=== PATIENT | male | born 1985 | race American Indian/Alaskan Native ===

== ENCOUNTER 2018-09-17 17:07 | Emergency (ER) | payer OTHER ==
[2018-09-17 18:35] VITALS: BP 119/87
--- NOTE | 2018-09-17 18:39 | Emergency Department Report ---
ED ENT HPI - General Chief complaint: Dental/Oral Stated complaint: LFT SIDE FACE SWELLING/ PAIN Time Seen by Provider: 09/17/18 18:34 Source: patient Mode of arrival: Ambulatory Limitations: No Limitations - History of Present Illness Initial comments: Pt is a 33 yo male who presents to the ED with c/o left upper dental pain that began yesterday. Pt states he has noticed mild left facial edema. Pt denies any fever, denies any N/V. Pt has not seen a dentist in 5 years. Pt denies any PMHx, denies any daily medications. Pt states he has a drug allergy to tramadol. - Related Data Previous Rx's Medication Instructions Recorded Last Taken Type Acetaminophen/Codeine [Tylenol 1 tab PO Q6H PRN #10 tab 09/17/18 Unknown Rx /Codeine # 3 tab] Clindamycin [Clindamycin CAP] 150 mg PO TID 7 Days #63 capsule 09/17/18 Unknown Rx Ibuprofen 600 mg PO Q6HR PRN #20 tablet 09/17/18 Unknown Rx Penicillin Vk [Veetids TAB] 500 mg PO TID 7 Days #21 tablet 09/17/18 Unknown Rx Allergies Allergy/AdvReac Type Severity Reaction Status Date / Time tramadol [From Ultram] Allergy Itching Verified 09/17/18 17:09 ED Dental HPI - General Chief complaint: Dental/Oral Stated complaint: LFT SIDE FACE SWELLING/ PAIN Time Seen by Provider: 09/17/18 18:34 Source: patient Mode of arrival: Ambulatory Limitations: No Limitations - Related Data Previous Rx's Medication Instructions Recorded Last Taken Type Acetaminophen/Codeine [Tylenol 1 tab PO Q6H PRN #10 tab 09/17/18 Unknown Rx /Codeine # 3 tab] Clindamycin [Clindamycin CAP] 150 mg PO TID 7 Days #63 capsule 09/17/18 Unknown Rx Ibuprofen 600 mg PO Q6HR PRN #20 tablet 09/17/18 Unknown Rx Penicillin Vk [Veetids TAB] 500 mg PO TID 7 Days #21 tablet 09/17/18 Unknown Rx Allergies Allergy/AdvReac Type Severity Reaction Status Date / Time tramadol [From Ultram] Allergy Itching Verified 09/17/18 17:09 ED Review of Systems ROS: Stated complaint: LFT SIDE FACE SWELLING/ PAIN Other details as noted in HPI Comment: All other systems reviewed and negative ED Past Medical Hx - Past Medical History Previous Medical History?: No - Surgical History Past Surgical History?: No - Medications Home Medications: Home Medications Medication Instructions Recorded Confirmed Last Taken Type Acetaminophen/Codeine [Tylenol 1 tab PO Q6H PRN #10 tab 09/17/18 Unknown Rx /Codeine # 3 tab] Clindamycin [Clindamycin CAP] 150 mg PO TID 7 Days #63 capsule 09/17/18 Unknown Rx Ibuprofen 600 mg PO Q6HR PRN #20 tablet 09/17/18 Unknown Rx Penicillin Vk [Veetids TAB] 500 mg PO TID 7 Days #21 tablet 09/17/18 Unknown Rx ED Physical Exam - General Limitations: No Limitations General appearance: alert, in no apparent distress - Head Head exam: Present: atraumatic, normocephalic - Eye Eye exam: Present: normal appearance, PERRL - ENT ENT exam: Present: mucous membranes moist, other (left upper dental caries present, cracked tooth present, very small amount of left sided facial swelling, uvula is midline) - Respiratory Respiratory exam: Present: normal lung sounds bilaterally. Absent: respiratory distress, wheezes, rales, rhonchi, stridor, chest wall tenderness, accessory muscle use, decreased breath sounds, prolonged expiratory - Cardiovascular Cardiovascular Exam: Present: regular rate, normal rhythm, normal heart sounds. Absent: systolic murmur, diastolic murmur, rubs, gallop - Neurological Exam Neurological exam: Present: alert, oriented X3 - Psychiatric Psychiatric exam: Present: normal affect, normal mood - Skin Skin exam: Present: warm, dry, intact ED Course Vital Signs 09/17/18 18:33 Temperature 98.9 F Pulse Rate 85 Respiratory 20 Rate Blood Pressure 119/87 O2 Sat by Pulse 99 Oximetry ED Medical Decision Making - Lab Data Vital Signs 09/17/18 18:33 Temperature 98.9 F Pulse Rate 85 Respiratory 20 Rate Blood Pressure 119/87 O2 Sat by Pulse 99 Oximetry - Medical Decision Making Pt is a 33 yo male who presents to the ED with c/o left upper dental pain that began yesterday. Pt states he has noticed mild left facial edema. Pt denies any fever, denies any N/V. Pt has not seen a dentist in 5 years. Pt denies any PMHx, denies any daily medications. Pt states he has a drug allergy to tramadol. Vital signs are normal. Very small amount of left sided facial swelling near area of dental caries and a cracked tooth. Will give pt antibiotics, anti-inflammatory, and pain medication. Advised to take medication as prescribed. Do not drive, work, or operate heavy machinery while taking pain medication. Follow up with a dentist [facility]. Return to the emergency room for any new or worsening symptoms. Critical care attestation.: If time is entered above; I have spent that time in minutes in the direct care of this critically ill patient, excluding procedure time. ED Disposition Clinical Impression: Dental caries, Pain, dental, Dental infection Disposition: TO HOME OR SELFCARE Is pt being admited?: No Does the pt Need Aspirin: No Condition: Stable Instructions: Dental Caries (ED) Additional Instructions: Please follow up with a dentist [facility]. Given list of several dental clinic resources in the community. Take all medication as prescribed. Return to the emergency room for any new or worsening symptoms. Prescriptions: Clindamycin [Clindamycin CAP] 150 mg PO TID 7 Days #63 capsule Ibuprofen 600 mg PO Q6HR PRN #20 tablet PRN Reason: Pain, Moderate (4-6) Acetaminophen/Codeine [Tylenol /Codeine # 3 tab] 1 tab PO Q6H PRN #10 tab PRN Reason: Pain , Severe (7-10) Penicillin Vk [Veetids TAB] 500 mg PO TID 7 Days #21 tablet Referrals: [facility] [Provider Group] - 2-3 Days your, dentist [Other] - 2-3 Days Time of Disposition: 18:57 Print Language: IRAQI
== END 2018-09-17 19:20 | disposition home or self-care (01) ==
LOC: ED 17:07
DX: K02.9 Dental caries, unspecified (principal); K04.7 Periapical abscess without sinus; Z88.6 Allergy status to analgesic agent
CPT/HCPCS: 99282